=== PATIENT | female | born 1970 | race Caucasian/White ===

== ENCOUNTER 2018-12-12 10:52 | Emergency (ER) | payer BC ==
[~2018-12-12] VITALS: Ht 157.5 cm; Wt 86.2 kg
--- OUTSIDE RECORDS SUMMARY | 2018-12-12 10:55 | XMS REPORT ---
Author Author [facility] Address Unknown Phone Unavailable Care Team Providers Care Public [employer] Aides Teacher Name Role Phone Unavailable Unavailable Problems This patient has no known problems. Allergies, Adverse Reactions, Alerts This patient has no known allergies or adverse reactions. Medications This patient has no known medications. Encounters Start Date/Time End Date/Time Encounter Type Admission Type Attending Clinicians Care Facility Care Department Encounter ID 2017-06-17 00:00:00 2017-06-17 00:00:00 Outpatient [facility] [id number] 2017-05-24 00:00:00 2017-05-24 00:00:00 Outpatient [facility] [id number]
[2018-12-12] MEDS ORDERED: HYDROCODONE/APAP 5MG-325MG TAB PO NR (11:15)
[2018-12-12] MEDS ORDERED: KETOROLAC TROMETHAMINE 60 MG/2 ML VIAL IM NR (11:15)
[2018-12-12] MEDS ORDERED: ORPHENADRINE CITRATE 30 MG/ML VIAL IM ONE (11:15)
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
[2018-12-12 14:10] VITALS: BP 153/91
== END 2018-12-12 14:18 | disposition home or self-care (01) ==
LOC: ER 10:52
DX: M54.5 Low back pain (principal); S39.012A Strain of muscle, fascia and tendon of lower back, initial encounter; V43.52XA Car driver injured in collision with other type car in traffic accident, initial encounter; Y92.488 Other paved roadways as the place of occurrence of the external cause
CPT/HCPCS: 71046; 72100; 73502; 99283; J1885; J2360